=== PATIENT | male | born 1945 ===

== ENCOUNTER 2017-02-21 23:08 | Emergency (ER) | payer BC, MEDICARE ==
[2017-02-21 23:08] VITALS: BMI 34.8
[2017-02-21 23:20] VITALS: BP 140/85; PULSE 79; TEMP 98.2; O2SAT 96
--- NOTE | 2017-02-22 00:12 | C.PDOC ---
History Of Present Illness 71 year old male with a history of chronic back pain and PSHx of lower back surgery 33 years ago presents to the ED with complaints of left sided lower back pain for 3 days after slipping on wet floor. Patient notes pain radiates to left thigh. Patient denies incontinence, urinary symptoms, weakness, numbness , or other complaints at this time. Time Seen by Provider: 02/21/17 23:28 Chief Complaint (Nursing): Back Pain History Per: Patient History/Exam Limitations: no limitations Onset/Duration Of Symptoms: Days (3 days) Current Symptoms Are (Timing): Still Present Quality Of Discomfort: "Pain" Previous Symptoms: Chronic Pain (back pain ) Associated Symptoms: None Recent travel outside of the [place]: No Additional History Per: Prior Records Past Medical History Reviewed: Historical Data, Nursing Documentation, Vital Signs Vital Signs: Last Vital Signs Temp 98.2 F 02/21/17 23:15 Pulse 79 02/21/17 23:15 Resp 20 02/22/17 00:17 BP 140/85 02/21/17 23:15 Pulse Ox 96 02/22/17 02:03 - Medical History PMH: Arthritis, Asthma Surgical History: Endoscopy - [facility] Procedures INSPECTION OF BLADDER, ENDO (05/26/16) RESECTION OF PROSTATE, ENDO (05/26/16) Family History: States: Unknown Family Hx - Social History Hx Alcohol Use: No Hx Substance Use: No - Immunization History Hx Tetanus Toxoid Vaccination: No Hx Influenza Vaccination: No Hx Pneumococcal Vaccination: No Review Of Systems Constitutional: Negative for: Fever, Chills Cardiovascular: Negative for: Chest Pain, Palpitations Respiratory: Negative for: Cough, Shortness of Breath Gastrointestinal: Negative for: Nausea, Vomiting Genitourinary: Negative for: Dysuria, Incontinence Musculoskeletal: Positive for: Back Pain (radiates to left thigh ) Physical Exam - Physical Exam Appears: Non-toxic, No Acute Distress Skin: Warm, Dry, No Rash Head: Atraumatic, Normacephalic, No Tenderness Eye(s): bilateral: Normal Inspection, PERRL, EOMI Oral Mucosa: Moist Neck: No Midline Cervical Tenderness, No Paracervical Tenderness, Supple Chest: Symmetrical, No Deformity Cardiovascular: Rhythm Regular, No Murmur Respiratory: No Rales, No Rhonchi, No Wheezing, Other (clear to auscultation bilaterally ) Gastrointestinal/Abdominal: Soft, No Tenderness, No Distention, No Guarding, No Rebound Back: No Vertebral Tenderness, No Decreased ROM, Paraspinal Tenderness (left paralumbar tenderness ), Straight Leg Raising (positive 40 degrees ), Other ( midline lumbar scar ) Extremity: Normal ROM, No Tenderness, Capillary Refill (<2 seconds ) Neurological/Psych: Oriented x3, Normal Motor, Normal Sensation Gait: Steady ED Course And Treatment O2 Sat by Pulse Oximetry: 96 (RA) Pulse Ox Interpretation: Normal Progress Note: Patient was given Flexeril and Toradol. Patient is requesting injection of Toradol IM and wants a prescription for injectable medication. Explained to patient that IM medications for pain can not be prescribed. Patient was instructed to follow up with PMD. Disposition - Disposition Referrals: Baudilio Grubbs MD [Primary Care Provider] - Disposition: HOME/ ROUTINE Disposition Time: 00:07 Condition: STABLE Additional Instructions: Please follow up with your doctor Take meds as prescribed Return to ER if worse Prescriptions: Cyclobenzaprine [Cyclobenzaprine HCl] 10 mg PO HS #7 tab Naproxen [Naprosyn] 1 tab PO BID PRN #25 tab PRN Reason: Pain Instructions: Back Pain (ED) Forms: [employer] (Mexican) - Clinical Impression Clinical Impression: Low back strain - PA / ENGINEERING TECHNOLOGIST / Resident Statement MD/DO has reviewed & agrees with the documentation as recorded. - Scribe Statement The provider has reviewed the documentation as recorded by the Scribe Shreya Zimmer All medical record entries made by the Scribe were at my direction and personally dictated by me. I have reviewed the chart and agree that the record accurately reflects my personal performance of the history, physical exam, medical decision making, and the department course for this patient. I have also personally directed, reviewed, and agree with the discharge instructions and disposition.
[2017-02-22 00:18] VITALS: RESP 20
== END 2017-02-22 00:17 | disposition home or self-care (01) ==
LOC: C.ER 23:08 → SUPCPDRO 23:08 → C.ER 02-22 00:17
DX: S39.012A Strain of muscle, fascia and tendon of lower back, initial encounter (principal); W01.0XXA Fall on same level from slipping, tripping and stumbling without subsequent striking against object, initial encounter; Y92.89 Other specified places as the place of occurrence of the external cause
CPT/HCPCS: 96372; 99283; J1885

== ENCOUNTER 2017-03-12 09:45 | Emergency (ER) | payer BC ==
[2017-03-12 09:45] VITALS: BMI 34.8
[2017-03-12 10:13] VITALS: BP 154/76; PULSE 85; RESP 20; TEMP 98.3; O2SAT 98
--- NOTE | 2017-03-12 11:37 | C.PDOC ---
History Of Present Illness Brenton Cobian is a 71 y/o male who presents complaining of bilateral neck pain and difficulty moving his neck for 1 day. He reports the symptoms began when he was outside standing in the cold. Denies any direct injury or trauma. No fevers , headache, numbness, weakness, or tingling. Time Seen by Provider: 03/12/17 10:21 Chief Complaint (Nursing): Back Pain History Per: Patient History/Exam Limitations: no limitations Onset/Duration Of Symptoms: Days (x 1) Current Symptoms Are (Timing): Still Present Past Medical History Reviewed: Historical Data, Nursing Documentation, Vital Signs Vital Signs: Last Vital Signs Temp 98.3 F 03/12/17 10:13 Pulse 85 03/12/17 10:13 Resp 20 03/12/17 10:13 BP 154/76 H 03/12/17 10:13 Pulse Ox 98 03/12/17 12:08 - Medical History PMH: Arthritis, Asthma Surgical History: Endoscopy - [facility] Procedures INSPECTION OF BLADDER, ENDO (05/26/16) RESECTION OF PROSTATE, ENDO (05/26/16) Family History: States: Unknown Family Hx - Social History Hx Alcohol Use: No Hx Substance Use: No - Immunization History Hx Tetanus Toxoid Vaccination: No Hx Influenza Vaccination: No Hx Pneumococcal Vaccination: No Review Of Systems Constitutional: Negative for: Fever Musculoskeletal: Positive for: Neck Pain (worse w/ movement) Neurological: Negative for: Weakness, Numbness (and tingling), Headache Physical Exam - Physical Exam Appears: Non-toxic, No Acute Distress Skin: Normal Color, Warm, Dry Head: Atraumatic, Normacephalic Eye(s): bilateral: Normal Inspection, PERRL, EOMI Oral Mucosa: Moist Neck: No Midline Cervical Tenderness, Paracervical Tenderness (bilaterally), Other (Trapezius tenderness bilaterally) Cardiovascular: Rhythm Regular Respiratory: Normal Breath Sounds, No Accessory Muscle Use Neurological/Psych: Oriented x3, Normal Speech, Normal Cranial Nerves, Normal Motor, Normal Sensation ED Course And Treatment O2 Sat by Pulse Oximetry: 98 (RA) Pulse Ox Interpretation: Normal Medical Decision Making Medical Decision Making: Plan: Motrin 600 mg PO Tylenol 975 mg PO 1203 pt feeling a bit better, will d/c with nsaids and flexeril, f/u pmd on Tuesday Disposition Counseled Patient/Family Regarding: Diagnosis, Need For Followup, Rx Given - Disposition Referrals: Opal Cabral PA-C [Physician Gardener Florist-Certified] - Disposition: HOME/ ROUTINE Disposition Time: 12:04 Condition: IMPROVED Additional Instructions: Por favor, tome ibuprofeno segn lo recetado. Manuelito relajante muscular cuando se quede en colon casa, hasta geo veces al da; tomas medicamento puede causarle sueo , por lo que no debe manejar ni manejar maquinaria cuando lo est usando. Kristyn un seguimiento con colon mdico el . Regrese a la valentina de emergencias por cualquier sntoma peor. e take ibuprofen as prescribed. Take muscle relaxant when staying at home, up to three times a day- this medicine may make you sleepy, so no driving or operating machinery when tkaing it. Follow up with your doctor on Tuesday. Return to ER for any worse symptoms. Please take ibuprofen as prescribed. Take muscle relaxant when staying at home , up to three times a day- this medicine may make you sleepy, so no driving or operating machinery when tkaing it. Follow up with your doctor on Tuesday. Return to ER for any worse symptoms. Prescriptions: Cyclobenzaprine [Cyclobenzaprine HCl] 5 mg PO TID #9 tab Ibuprofen [Motrin] 600 mg PO TID #30 tab Instructions: Cervical Strain (DC) Forms: Gen Discharge Inst Kiswahili, [employer] (Kiswahili) Print Language: ARABIC - Clinical Impression Clinical Impression: Cervical strain, acute - PA / PHYSICAL SCIENCES PROFESSOR / Resident Statement MD/DO has reviewed & agrees with the documentation as recorded. - Scribe Statement The provider has reviewed the documentation as recorded by the Scribe (Rosangela Ordoñez) All medical record entries made by the Scribe were at my direction and personally dictated by me. I have reviewed the chart and agree that the record accurately reflects my personal performance of the history, physical exam, medical decision making, and the department course for this patient. I have also personally directed, reviewed, and agree with the discharge instructions and disposition.
== END 2017-03-12 12:25 | disposition home or self-care (01) ==
LOC: C.ER 09:45
DX: S16.1XXA Strain of muscle, fascia and tendon at neck level, initial encounter (principal); X58.XXXA Exposure to other specified factors, initial encounter